=== PATIENT | male | born 1965 | race Hispanic/Latino ===

== ENCOUNTER 2017-11-10 08:39 | Outpatient (CLI) | payer OTHER ==
--- NOTE | 2017-11-10 09:28 | XRay Report ---
XRAY RIGHT SHOULDER THREE VIEWS: 11/10/17 08:39:00 CLINICAL: Right shoulder pain. FINDINGS: No fracture or dislocation. Mild glenohumeral joint arthritis with an osteophyte at the inferior glenoid rim. Moderate acromioclavicular joint arthritis. No fracture or dislocation. No bone lesion. Normal soft tissues. IMPRESSION: Glenohumeral joint and acromioclavicular joint arthritis.
== END 2017-11-10 08:40 | disposition home or self-care (01) ==
LOC: SPVIMAG 08:39
PROVIDERS: ATTEND Orthopaedic Surgery
DX: M19.011 Primary osteoarthritis, right shoulder (principal)